=== PATIENT | male | born 1970 | race Caucasian/White ===

== ENCOUNTER 2020-12-24 20:04 | Emergency (ER) | payer OTHER ==
[~2020-12-24] VITALS: Ht 167.6 cm; Wt 83.9 kg
[~2020-12-24 20:04] MED LIST: ELIQUIS5 MG PO; NOHOMEMEDICATIONS; PREDNISONE50 MG PO; SYMBICORT160 MCG/4.; VENTOLIN HFA 1818 GM
[2020-12-24 21:25] VITALS: BP 109/75
== END 2020-12-24 21:26 | disposition home or self-care (01) ==
LOC: ER 20:04
DX: S61.210A Laceration without foreign body of right index finger without damage to nail, initial encounter (principal); J44.9 Chronic obstructive pulmonary disease, unspecified; F17.210 Nicotine dependence, cigarettes, uncomplicated; Z79.899 Other long term (current) drug therapy; Z79.51 Long term (current) use of inhaled steroids; W27.4XXA Contact with kitchen utensil, initial encounter; Y93.89 Activity, other specified; Y92.89 Other specified places as the place of occurrence of the external cause; Y99.8 Other external cause status